=== PATIENT | female | born 1980 | race Caucasian/White ===

== ENCOUNTER 2017-05-29 10:03 | Emergency (ER) | payer BC, OTHER ==
[~2017-05-29] VITALS: Ht 160 cm; Wt 54.3 kg
[~2017-05-29 10:03] MED LIST: BACTDS PO; CIPR500T4 PO; FERR240T9 PO; HYDR-906 PO; IBUP-1542 PO; Lanolin TOP; PREN-39 PO; TRAM50TA2 PO
[2017-05-29 10:06] VITALS: Ht 160 cm; Wt 54.3 kg
[2017-05-29] MEDS ORDERED: KETOROLAC 30 MG INJ IM STA (12:28)
[2017-05-29] MEDS ORDERED: predniSONE 20 MG TAB PO ONE (12:30)
--- NOTE | 2017-05-29 13:02 | ERD ---
ER Documentation Chief Complaint Chief Complaint LOWER BACK PAIN RADIATING TO LEG, LEG NUMBNESS HPI This a 36-year-old female presents emergency department today complaining of right-sided back pain and leg pain that goes down the back of her leg for the past 3 weeks that is getting worse. Patient states that she was taking ibuprofen and amoxicillin. States she was taking the amoxicillin because she thought she might have a urinary tract infection. Denies any fevers or chills, vomiting. States she has pain with walking. Denies any loss of bowel or bladder control. Denies any trauma. ROS All systems reviewed and are negative except as per history of present illness. Medications Home Meds Active Scripts Tramadol HCl (Tramadol HCl) 50 Mg Tablet, 50 MG PO Q4 Y for PAIN, #20 TAB Prov:SOFIE JACKSON PA-C 05/29/17 Cyclobenzaprine Hcl* (Cyclobenzaprine Hcl*) 10 Mg Tablet, 10 MG PO QHS, #7 TAB Prov:SOFIE JACKSON PA-C 05/29/17 Naproxen* (Naprosyn*) 500 Mg Tablet, 500 MG PO BID Y for PAIN AND/OR INFLAMMATION, #30 TAB Prov:SOFIE JACKSON PA-C 05/29/17 Cephalexin* (Keflex*) 500 Mg Capsule, 500 MG PO QID for 7 Days, CAP Prov:SOFIE JACKSON PA-C 05/29/17 Sulfamethoxazole-Trimethoprim* (Bactrim* DS) 800-160 Mg Tab, 1 TAB PO BID for 5 Days, TAB Prov:NUZHAT GARCIA NP 04/09/16 Tramadol HCl (Tramadol HCl) 50 Mg Tablet, 50 MG PO Q4 Y for PAIN, #20 TAB Prov:NUZHAT GARCIA NP 04/09/16 Ciprofloxacin Hcl* (Ciprofloxacin Hcl*) 500 Mg Tablet, 500 MG PO BID for 7 Days , TAB Prov:NANCY ROWE PA-C 03/26/16 Hydrocodone/Acetaminophen ([place] 5-325 Tablet) 1 Each Tablet, 1 TAB PO Q6H Y for PAIN, #7 TAB Prov:NANCY ROWE PA-C 03/26/16 [Lanolin] 1 APPLIC OINT No Conflict Check, 1 APPLIC TOP BEDSIDE MEDICATION Y for BEDSIDE FOR ANDREY TO NIPPLES for 7 Days, 5 Refills Prov:FUENTES BLACKWELL MD 07/19/14 Ibuprofen* (Motrin*) 600 Mg Tab, 600 MG PO Q6 for 10 Days, TAB Prov:FUENTES BLACKWELL MD 07/19/14 Reported Medications Ferrous Gluconate (Iron) 1 Tab Tablet, 1 TAB PO 07/17/14 Vits W-Ca,Fe,Fa(<1MG) ( Vitamins) 1 Tab Tablet, 1 TAB PO DAILY for 7 Days 05/22/14 Allergies Allergies: Coded Allergies: No Known Allergy (Verified , 03/25/16) PMhx/Soc History of Surgery: No Anesthesia Reaction: No Hx Neurological Disorder: No Hx Respiratory Disorders: No Hx Cardiac Disorders: No Hx Psychiatric Problems: No Hx Miscellaneous Medical Probl: No Hx Alcohol Use: No Hx Substance Use: No Hx Tobacco Use: No Smoking Status: Never smoker Physical Exam Vitals Vital Signs Date Time Temp Pulse Resp B/P Pulse Ox O2 Delivery O2 Flow Rate FiO2 05/29/17 10:06 98.3 64 16 103/65 100 Physical Exam Const: NAD Head: Atraumatic Eyes: Normal Conjunctiva ENT: Normal External Ears, Nose and Mouth. Neck: Full range of motion..~ No meningismus. Resp: Clear to auscultation bilaterally Cardio: Regular rate and rhythm, no murmurs Abd: Soft, non tender, non distended. Normal bowel sounds Skin: No petechiae or rashes Back: No midline or flank tenderness Ext: No cyanosis, or edema Neur: Awake and alert Psych: Normal Mood and Affect Results 24 hrs Laboratory Tests Test 05/29/17 12:30 Urine Color YELLOW Urine Clarity CLOUDY Urine pH 6.0 Urine Specific [place] 1.012 Urine Ketones NEGATIVEmg/dL Urine Nitrite NEGATIVEmg/dL Urine Bilirubin NEGATIVEmg/dL Urine Urobilinogen NEGATIVEmg/dL Urine Leukocyte Esterase 3+Raz/ul Urine Microscopic RBC 9/HPF Urine Microscopic WBC 90/HPF Urine Squamous Epithelial Cells FEW/HPF Urine Bacteria FEW/HPF Urine Hemoglobin 3+mg/dL Urine Glucose NEGATIVEmg/dL Urine Total Protein NEGATIVEmg/dl Current Medications Medications (Trade) Dose Ordered Sig/Matthew Route PRN Reason Start Time Stop Time Status Last Admin Dose Admin Ketorolac Tromethamine (Toradol) 30 mg ONCE STAT IM 05/29/17 12:28 05/29/17 12:30 DC 05/29/17 12:49 Prednisone (Prednisone) 60 mg ONCE ONCE PO 05/29/17 12:30 05/29/17 12:31 DC 05/29/17 12:49 DIAGNOSTIC IMAGING REPORT Patient: DANYA BIRD : 1980 Age: 36 Sex: F MR #: [id number] DOS: 05/29/17 0000 Ordering MD: SOFIE JACKSON PA-C Location: [facility] Room/Bed: PROCEDURE: Lumbar spine CLINICAL INDICATION: Trauma with back pain TECHNIQUE: Lumbar spine two views COMPARISON: None FINDINGS: Two views lumbar spine demonstrate no displaced fracture. No gross malalignment is seen. There is no anterior or posterior listhesis. The vertebral body heights and disk spaces are well maintained. SI joints within normal limits. Sacral arches are intact. IMPRESSION: No acute fracture dislocation Slight straightening of the lumbar spine which may suggest muscular spasm RPTAT: HH .Pedro Pablo Ferrell MD, MD Date Time Electronically viewed and signed by .Pedro Pablo Ferrell MD, on 05/29/2017 13:29 .W/ CC: SOFIE JACKSON PA-C Procedures/MDM This is a 36-year-old female who presents emergency department today complaining of right-sided back pain and right leg pain for the past 3 weeks. Given patient had radicular symptoms I did obtain images as well as a UA. UA shows 3+ leukocyte esterase. Microscopic white blood cells. Negative nitrites. Urine was sent for culture test is negative Lumbar spine films no acute fracture dislocation. There is no anterior or posterior listhesis. Vertebral body heights and disc spaces are well- maintained. There is slight straightening of the lumbar spine which may suggest muscular spasm. Symptoms at this time is consistent with back pain and leg pain likely sciatic related pain urinary tract infection and that may also be causing patient's back pain. I have explained this to the patient. Low suspicion for acute fracture dislocation. Patient is afebrile and otherwise well-appearing. She has no loss of bowel or bladder control. Low suspicion for cauda equina or abscess. Patient was given Toradol and prednisone here in the emergency department and pain improved. Patient was given a prescription for short course of tramadol, Naprosyn, Keflex and Flexeril for home. At this time the patient is stable for discharge and outpatient management. Patient should follow up with their PCP in the next 1-2 days. They may return to the emergency department sooner for any persistent or worsening of symptoms. Patient understood and agreed with the plan. Departure Diagnosis: Primary Impression: Back pain Back pain location: low back pain Chronicity: chronic Back pain laterality : right Sciatica presence: with sciatica Sciatica laterality: sciatica of right side Qualified Code: M54.41 - Chronic right-sided low back pain with right-sided sciatica Additional Impression: UTI (lower urinary tract infection) Condition: Fair SOFIE JACKSON PA-C May 29, 2017 13:02
[2017-05-29 13:18] LABS: ADD UMIC YES; UR ASCORBIC ACID NEGATIVE (NEGATIVE); UR BACTERIA FEW /HPF (NONE SEEN); UR BILIRUBIN (Dip) NEGATIVE (NEGATIVE); UR BLOOD (Dip) 3+ mg/dL (NEGATIVE); UR CLARITY CLOUDY (CLEAR); UR COLOR YELLOW (YELLOW); UR GLUCOSE (Dip) NEGATIVE (NEGATIVE); UR KETONES (Dip) NEGATIVE (NEGATIVE); UR LEUKOCYTE ESTERASE (Dip) 3+ Leu/ul (NEGATIVE); UR NITRITE (Dip) NEGATIVE (NEGATIVE); UR RBC 9 /HPF (0-5); UR SPECIFIC GRAVITY (Dip) 1.012 (1.003-1.030); UR SQUAMOUS EPITHELIAL CELL FEW /HPF (FEW); UR TOTAL PROTEIN (Dip) NEGATIVE (NEGATIVE); UR UROBILINOGEN (Dip) NEGATIVE (NEGATIVE)
--- NOTE | 2017-05-29 13:30 | RADRPT ---
PROCEDURE: Lumbar spine CLINICAL INDICATION: Trauma with back pain TECHNIQUE: Lumbar spine two views COMPARISON: None FINDINGS: Two views lumbar spine demonstrate no displaced fracture. No gross malalignment is seen. There is no anterior or posterior listhesis. The vertebral body heights and disk spaces are well maintained. SI joints within normal limits. Sacral arches are intact. IMPRESSION: No acute fracture dislocation Slight straightening of the lumbar spine which may suggest muscular spasm RPTAT: HH .Pedro Pablo Ferrell MD, Date Time Electronically viewed and signed by .Pedro Pablo Ferrell MD, on 05/29/2017 13:29 .W/
[2017-05-29] MEDS ORDERED: NAPR-260 PO (13:59)
[2017-05-29] MEDS ORDERED: CEPH-443 PO (13:59)
[2017-05-29] MEDS ORDERED: TRAM50TA2 PO (14:00)
[2017-05-29] MEDS ORDERED: CYCL-319 PO (14:00)
== END 2017-05-29 14:10 | disposition home or self-care (01) ==
LOC: FTE 10:03
DX: M54.41 Lumbago with sciatica, right side (principal); N39.0 Urinary tract infection, site not specified
CPT/HCPCS: 72100; 81001; 87086; 96372; 99284; J1885; J7512